=== PATIENT | female | born 1965 | race Two or more races ===

== ENCOUNTER 2016-09-09 21:42 | Emergency (ER) | payer MEDICAID ==
[~2016-09-09] VITALS: Ht 170.2 cm; Wt 108.9 kg
[2016-09-09] MEDS ORDERED: diphenhdrAMINE HCL 25 MG CAP PO ONE (23:15)
[2016-09-09 23:39] LABS: Basophils # (auto) 0 uL; Basophils % (auto) 0.2 % (0.0-2.0); Eosinophils # (auto) 0.1 uL; Eosinophils % (auto) 1.2 % (0.0-7.0); Hemoglobin 13.3 g/dL (12.2-16.2); Lymphocytes # (auto) 2.7 uL; Lymphocytes % (auto) 34.5 % (10.0-50.0); Mean Corpuscular Hemoglobin 29.3 pg (28.0-32.0); Mean Corpuscular Hgb Conc. 33.2 g/dL (32.0-36.0); Mean Corpuscular Volume 88.1 fL (80.0-100.0); Mean Platelet Volume 8.9 fL (7.4-10.4); Monocytes # (auto) 0.8 uL; Neutrophils # (auto) 4.3 uL; Neutrophils % (auto) 54.1 % (37.0-80.0); Platelet Count (auto) 353 10^3/uL (140-450); Red Cell Distribution Width 13.1 % (11.6-16.0); White Blood Cell 7.9 10^3/uL (4.4-10.8)
[2016-09-09 23:52] LABS: Salicylate < 1.7 mg/dL (2.8-20.0)
[2016-09-09 23:59] LABS: Acetaminophen < 2.0 ug/mL (10-30)
[2016-09-10 07:25] VITALS: BP 148/62
== END 2016-09-10 09:31 | disposition home or self-care (01) ==
LOC: ER 21:47
DX: F32.9 Major depressive disorder, single episode, unspecified (principal); F41.9 Anxiety disorder, unspecified; R21 Rash and other nonspecific skin eruption; F29 Unspecified psychosis not due to a substance or known physiological condition; E11.9 Type 2 diabetes mellitus without complications; I10 Essential (primary) hypertension; F20.9 Schizophrenia, unspecified
CPT/HCPCS: 36415; 80320; 80329; 82962; 85025; 99285; G0434